=== PATIENT | female | born 1955 | race Caucasian/White ===

== ENCOUNTER 2024-04-26 07:02 | Observation (INO) ==
[2024-04-26] MEDS: NOZIN NASAL SANITIZER TP ONE (07:22)
[2024-04-26] MEDS: DUONEB 0.5 MG/3 MG (3 mL) NEB ONE (07:42)
[2024-04-26] MEDS: ANCEF VIAL 1 GRAM ONE (07:57)
[2024-04-26] MEDS: NS 1,000 ML IV 1,000 ML ONE (07:57)
[2024-04-26] MEDS: NS 100 ML IV 100 ML ONE (07:57)
[2024-04-26] MEDS: VERSED ONE (08:06)
[2024-04-26] MEDS: ZOFRAN INJ 4 MG VIAL ONE (08:06)
[2024-04-26] MEDS: DIPRIVAN VIAL 20 ML ONE (08:06)
[2024-04-26] MEDS: OFIRMEV IV 1000 MG VIAL 0 MG/0 ML VIAL IV ONE (08:06)
[2024-04-26] MEDS: XYLOCAINE 2 % (PLAIN) ONE (08:06)
[2024-04-26] MEDS: FENTANYL VIAL INJ 100 mcg ONE ×2 (08:06→08:59)
[2024-04-26] MEDS: REGLAN INJ 10 MG VIAL ONE (08:06)
[2024-04-26] MEDS: BENADRYL INJ 50 MG VIAL ONE (08:06)
[2024-04-26] MEDS ORDERED: ULTANE GAS IN ONE (08:06)
[2024-04-26] MEDS: PEPCID 20 MG VIAL ONE (08:06)
[2024-04-26] MEDS: ULTANE GAS IN ONE (08:06)
[2024-04-26] MEDS: ROBINUL ONE (08:06)
[2024-04-26] MEDS: DECADRON INJ ONE ×2 (08:06→08:53)
[2024-04-26] MEDS: KETAMINE HCL ONE (08:06)
[2024-04-26] MEDS: OFIRMEV IV 1000 MG VIAL 1,000 MG/100 ML VIAL IV ONE (08:07)
[2024-04-26] MEDS: MARCAINE 0.5% ONE (08:27)
[2024-04-26] MEDS: HEPARIN SODIUM IN D5W 75,000 UNITS/1,500 ML BAG ONE (08:27)
[2024-04-26] MEDS: VISIPAQUE 100 ML ONE (08:27)
[2024-04-26] MEDS: VISIPAQUE 50 ML ONE (08:27)
[2024-04-26] MEDS: HEPARIN SODIUM INJ 5000 UNITS ONE (08:29)
[2024-04-26] MEDS: EPHEDRINE SULFATE INJ ONE (08:31)
[2024-04-26] MEDS: PROTAMINE SULFATE 50 MG VIAL ONE (09:26)
[2024-04-26] MEDS: MARCAINE 0.25% INJ ONE (09:40)
[2024-04-26] MEDS ORDERED: ZOFRAN INJ 4 MG VIAL IVP PRN ×2 (10:27→11:20)
[2024-04-26] MEDS ORDERED: DILAUDID INJ IVP PRN (10:27)
[2024-04-26] MEDS ORDERED: BENADRYL INJ 50 MG VIAL IVP PRN (10:27)
[2024-04-26] MEDS: NS 1,000 ML IV 1,000 ML IV SCH (12:40)
[2024-04-26] MEDS: DILAUDID INJ ONE (13:35)
[2024-04-26 17:10] VITALS: BMI 43.2
[2024-04-26] MEDS: COLACE CAP 100 MG PO SCH (20:35)
[2024-04-26] MEDS: DILAUDID INJ IVP PRN (20:39)
[2024-04-27] MEDS: PERCOCET TAB 5/325 MG PO PRN (04:31)
[2024-04-27 06:22] VITALS: RESP 20
[2024-04-27 07:13] LABS: BLOOD UREA NITROGEN 14 mg/dL (7-18); CALCIUM 8.7 mg/dL (8.5-10.1); CARBON DIOXIDE 29.6 mmol/L (21-32); CHLORIDE 103 mmol/L (98-107); COR NA(FOR HYPERGLY) 142 mmol/L (136-145); CREATININE 0.83 mg/dL (0.55-1.02); GLUCOSE 199 mg/dL (65-99); POTASSIUM 3.9 mmol/L (3.5-5.1); SODIUM 140 mmol/L (136-145); eGFR NON BLACK RACES > 60 (>60)
[2024-04-27] MEDS: LOVENOX INJ 40 MG SYR SC SCH (08:44)
--- NOTE | 2024-04-27 09:27 | NOTE.SOAP ---
Soap Note Note for Day of Date of Exam: 04/27/24 Subjective Data Subjective Data: Resting in bed. POD#1 3d replacement of syndesmosis, left. Throbbing in leg. No nausea, vomting, fevers, chills, shortness, of breath or chest pain. Denies calf pain. Objective Data Objective Data: Left Lower Extremity: Dressing taken down. Surgical site healing well. No signs of dehisence. Swelling looks controlled. No calf or thigh pain. Rewrapped with sterile 4x4s, ABD, Webroll and YAMIL. Assessment Assessment: 69 year old F POD#1 3d replacement of syndesmosis, left Plan Plan: - NWB to LLE - Needs crutches at dispo. - Rx in chart for pain medication, DVT Px, and zofran. - F/U APPT in chart. - Okay for discharge from Podiatry standpoint.
[2024-04-27 12:21] VITALS: BP 107/51; PULSE 69; TEMP 97.5; O2SAT 100
--- NOTE | 2024-04-28 15:00 | DR.OPNOTE ---
OP NOTE Pre-Op Diagnosis: tumor dital tibia Post-Op Diagnosis: same Procedure Date Date Of Procedure: 04/26/24 Procedure: PROCEDURE: DIAGNOSTIC AORTOGRAM, DIAGNOSTIC ARTERIOGRAM LEFT LEG, COIL EMBOLIZATION LEFT PERONEAL ARTERY NARRATIVE : The patient was taken to the operative suite and placed in the supine position. The right groin and entire left leg were prepped and draped in sterile fashion. The patient was given intravenous sedation supervised by myself. Time out for the procedure obtained. Ultrasound used to identify the right femoral artery and the skin overlying it infiltrated with 0.5% Marcaine. Ultrasound then used to guide puncture of the right femoral artery and a 0.012 inch guide wire was placed. Incision made over the guide wire at the skin edge with a # 11 knife blade and a micro sheath placed over the guide wire into the right femoral artery .The small guidewire exchanged for a 0.035 inch Advantage glide wire and the micro sheath exchanged for a 5 Fr vascular sheath. Patient given 5000 units of intravenous heparin. Omni catheter was placed over the guide wire into the aorta and diagnostic aortogram carried out with the power injector showing normal aorta and iliac arteries . Omni catheter was used to steer the guide wire down the left common iliac artery to the distal left external iliac artery . Omni catheter was exchanged for a [place] catheter and sequential arteriograms carried out of the left lower extremity showing normal patent left superficial femoral artery , popliteal artery and three vessel runoff with the tumor supplied by the left peroneal artery. The 5 Fr sheath in the right groin then exchanged for a 7 Fr destination sheath which was parked in distal left superficial fermoral artery . [place] catheter and the guide wire were used to traverse the arteries of the left leg ultimately ending in the left distal peroneal artery . This was selective catheterization. 0.035 inch wire removed and exchanged for a 0.014 inch wire. Over this wire we placed the delivery catheter for the coil , removed the wire and placed the coil deploying it in the left peroneal artery.At the completion of this a follow up arteriogram showed the peroneal artery and blood supply to the tumor to be thrombosed . All wires and devices removed. The 7 Fr sheath was pulled back into the aorta and a 0.035 inch wire placed. The destination sheath exchanged for an Angioseal device used to close the puncture of the right femoral artery. Dressing applied to the left groin. The patient taken to [facility] Day Surgery in good condition. Type of Anesthesia: General Anesthetic w/mask (LMA) Findings: as above Type of Fluids Used:: Lactated Ringers Total Amount of Fluid Infused:: 500cc Hardware: 3 mm coil ledt peroneal artery Complications:: none Needle/Sponge Count:: orrect Disposition/Condition: Pt. tolerated procedure without difficulty. Taken to PACU in stable condition.
--- NOTE | 2024-04-30 11:13 | W.DIS.FURT ---
Summary of Discharge Discharge Summary of Date Date of Exam: 04/27/24 Admission Date Date of Admission: 04/26/24 Admission Diagnosis Hospital Course: Pt is a 69 year old F POD#1 3d replacement of syndesmosis, left. Her discharge plan is: -NWB to LLE - Needs crutches at dispo. - Rx in chart for pain medication, DVT Px, and zofran. - F/U APPT in chart. - Okay for discharge from Podiatry standpoint. -Pt medically stable for discharge. Instructed to follow up with podiatry and pcp. Vital Signs: Vital Signs (72 hours) 04/26/24 07:20 04/26/24 07:20 04/26/24 11:03 Temperature 97 F L 97.4 F L Pulse Rate 65 65 76 Pulse Rate [Brachial] Pulse Rate [Right Brachial] Respiratory Rate 20 18 Blood Pressure 146/66 117/55 Blood Pressure [Left Arm] Blood Pressure [Right Arm] O2 Sat by Pulse Oximetry 97 97 Oxygen Delivery Method Room Air Aerosol Face Tent Oxygen Flow Rate FIO2% 04/26/24 11:08 04/26/24 11:28 04/26/24 11:32 Temperature Pulse Rate 69 67 65 Pulse Rate [Brachial] Pulse Rate [Right Brachial] Respiratory Rate 18 20 20 Blood Pressure 112/57 105/54 103/52 Blood Pressure [Left Arm] Blood Pressure [Right Arm] O2 Sat by Pulse Oximetry 98 93 L 94 L Oxygen Delivery Method Aerosol Face Tent Nasal Cannula Nasal Cannula Oxygen Flow Rate FIO2% 04/26/24 11:43 04/26/24 11:48 04/26/24 11:13 Temperature Pulse Rate 64 67 68 Pulse Rate [Brachial] Pulse Rate [Right Brachial] Respiratory Rate 20 20 18 Blood Pressure 102/55 103/52 105/51 Blood Pressure [Left Arm] Blood Pressure [Right Arm] O2 Sat by Pulse Oximetry 94 L 94 L 98 Oxygen Delivery Method Nasal Cannula Nasal Cannula Aerosol Face Tent Oxygen Flow Rate FIO2% 04/26/24 11:23 04/26/24 11:37 04/26/24 12:00 Temperature 98.3 F Pulse Rate 67 67 Pulse Rate [Brachial] 66 Pulse Rate [Right Brachial] Respiratory Rate 20 20 18 Blood Pressure 111/51 103/54 Blood Pressure [Left Arm] 115/56 Blood Pressure [Right Arm] O2 Sat by Pulse Oximetry 98 94 L 96 Oxygen Delivery Method Aerosol Face Tent Nasal Cannula Oxygen Flow Rate FIO2% 04/26/24 12:15 04/26/24 12:30 04/26/24 12:45 Temperature 98.2 F 98.2 F 98.4 F Pulse Rate Pulse Rate [Brachial] 64 69 73 Pulse Rate [Right Brachial] Respiratory Rate 18 18 20 Blood Pressure Blood Pressure [Left Arm] 116/56 113/56 113/55 Blood Pressure [Right Arm] O2 Sat by Pulse Oximetry 93 L 94 L 96 Oxygen Delivery Method Oxygen Flow Rate FIO2% 04/26/24 13:00 04/26/24 14:00 04/26/24 15:00 Temperature 98.3 F 98.3 F 98.1 F Pulse Rate Pulse Rate [Brachial] 72 74 71 Pulse Rate [Right Brachial] Respiratory Rate 20 20 20 Blood Pressure Blood Pressure [Left Arm] 122/66 116/61 129/59 Blood Pressure [Right Arm] O2 Sat by Pulse Oximetry 95 98 97 Oxygen Delivery Method Oxygen Flow Rate FIO2% 04/26/24 16:00 04/26/24 17:00 04/26/24 12:02 Temperature 98.3 F 98.2 F Pulse Rate Pulse Rate [Brachial] 71 75 Pulse Rate [Right Brachial] Respiratory Rate 18 18 Blood Pressure Blood Pressure [Left Arm] 136/63 139/65 Blood Pressure [Right Arm] O2 Sat by Pulse Oximetry 94 L 97 Oxygen Delivery Method Nasal Cannula Oxygen Flow Rate 2 FIO2% 04/26/24 17:59 04/26/24 19:00 04/26/24 20:00 Temperature 97.8 F Pulse Rate Pulse Rate [Brachial] 80 Pulse Rate [Right Brachial] Respiratory Rate 20 Blood Pressure Blood Pressure [Left Arm] 129/60 Blood Pressure [Right Arm] O2 Sat by Pulse Oximetry 96 Oxygen Delivery Method Nasal Cannula Nasal Cannula Oxygen Flow Rate 2 2 FIO2% 28 04/26/24 20:39 04/26/24 20:51 04/26/24 21:09 Temperature Pulse Rate Pulse Rate [Brachial] Pulse Rate [Right Brachial] Respiratory Rate 20 18 Blood Pressure Blood Pressure [Left Arm] Blood Pressure [Right Arm] O2 Sat by Pulse Oximetry Oxygen Delivery Method Nasal Cannula Oxygen Flow Rate 2 FIO2% 28 04/26/24 23:53 04/27/24 01:59 04/27/24 04:31 Temperature 97.9 F Pulse Rate Pulse Rate [Brachial] 71 Pulse Rate [Right Brachial] Respiratory Rate 19 19 18 Blood Pressure Blood Pressure [Left Arm] 115/56 Blood Pressure [Right Arm] O2 Sat by Pulse Oximetry 99 Oxygen Delivery Method Oxygen Flow Rate FIO2% 04/27/24 05:50 04/27/24 02:29 04/27/24 04:00 Temperature 97.3 F L Pulse Rate Pulse Rate [Brachial] 63 Pulse Rate [Right Brachial] Respiratory Rate 18 18 18 Blood Pressure Blood Pressure [Left Arm] 112/56 Blood Pressure [Right Arm] O2 Sat by Pulse Oximetry 97 Oxygen Delivery Method Oxygen Flow Rate FIO2% 04/27/24 05:31 04/27/24 06:20 04/27/24 08:45 Temperature Pulse Rate Pulse Rate [Brachial] Pulse Rate [Right Brachial] Respiratory Rate 18 20 20 Blood Pressure Blood Pressure [Left Arm] Blood Pressure [Right Arm] O2 Sat by Pulse Oximetry Oxygen Delivery Method Oxygen Flow Rate FIO2% 04/27/24 08:00 04/27/24 07:00 04/27/24 10:15 Temperature 97.8 F Pulse Rate Pulse Rate [Brachial] Pulse Rate [Right Brachial] 65 Respiratory Rate 20 20 Blood Pressure Blood Pressure [Left Arm] Blood Pressure [Right Arm] 131/61 O2 Sat by Pulse Oximetry 98 Oxygen Delivery Method Nasal Cannula Nasal Cannula Oxygen Flow Rate 2 2 FIO2% 04/27/24 09:45 Temperature Pulse Rate Pulse Rate [Brachial] Pulse Rate [Right Brachial] Respiratory Rate 20 Blood Pressure Blood Pressure [Left Arm] Blood Pressure [Right Arm] O2 Sat by Pulse Oximetry Oxygen Delivery Method Oxygen Flow Rate FIO2% Labs: Laboratory Last Values Sodium 140 mmol/L (136-145) 04/27/24 05:35 Corrected Sodium 142 mmol/L (136-145) 04/27/24 05:35 Potassium 3.9 mmol/L (3.5-5.1) 04/27/24 05:35 Chloride 103 mmol/L (98-107) 04/27/24 05:35 Carbon Dioxide 29.6 mmol/L (21-32) 04/27/24 05:35 BUN 14 mg/dL (7-18) 04/27/24 05:35 Creatinine 0.83 mg/dL (0.55-1.02) 04/27/24 05:35 Est GFR (MDRD) Af Amer > 60 (>60) 04/27/24 05:35 Est GFR (MDRD) Non-Af > 60 (>60) 04/27/24 05:35 Glucose 199 mg/dL (65-99) H 04/27/24 05:35 Calcium 8.7 mg/dL (8.5-10.1) 04/27/24 05:35 Reason For Visit: ORIF POST OP PAIN CONTROL Discharge Date Discharge Date: 04/27/24 Discharge Diagnosis Plan of Treatment: Continue with present treatment and follow up plan. Pt is to keep follow up appointment as instructed and take medications as ordered. Discharge Medications Discharge Medications: acetaminophen [From Excedrin Migraine] Allergy (Verified 09/13/23 07:46) aspirin [From Anacin] Allergy (Verified 09/13/23 07:46) caffeine [From Anacin] Allergy (Verified 09/13/23 07:46) clarithromycin [From Biaxin] Allergy (Verified 09/13/23 07:46) codeine Allergy (Verified 09/13/23 07:46) [id number] Reductase Inhibitor Allergy (Verified 09/13/23 07:46) CONTINUE taking the following medications albuterol sulfate 90 mcg/actuation aerosol inhaler 2 puff inhalation Q4H PRN 04/26/24 [History] estradiol 0.5 mg tablet 0.5 mg PO QDAY 04/26/24 [History] fenofibrate nanocrystallized 145 mg tablet 145 mg PO QPM cholesterol 04/26/24 [History] furosemide 40 mg tablet 40 mg PO QAM swelling 04/26/24 [History] insulin degludec 100 unit/mL (3 mL) subcutaneous pen (Tresiba FlexTouch U-100 insulin) 8 unit subcut DAILY 04/26/24 [History] insulin lispro 100 unit/mL subcutaneous pen (Admelog SoloStar U-100 Insulin lispro) 3 unit subcut BID 04/26/24 [History] isosorbide mononitrate 30 mg tablet,extended release 24 hr 30 mg PO QAM 04/26/24 [History] omeprazole 20 mg capsule,delayed release 20 mg PO QDAY 04/26/24 [History] pioglitazone 45 mg tablet 45 mg PO QDAY diabetes mellitus 04/26/24 [History] pramipexole 1 mg tablet 1 mg PO QPM 04/26/24 [History] propranolol 60 mg capsule,24 hr,extended release 60 mg PO QPM 04/26/24 [History] sertraline 100 mg tablet 100 mg PO QDAY 04/26/24 [History] tirzepatide 2.5 mg/0.5 mL subcutaneous pen injector (Mounjaro) 2.5 mg subcut WEEKLY 04/26/24 [History] Discharge Plan Discharge Plan Hospital Course: Pt is a 69 year old F POD#1 3d replacement of syndesmosis, left. Her discharge plan is: -NWB to LLE - Needs crutches at dispo. - Rx in chart for pain medication, DVT Px, and zofran. - F/U APPT in chart. - Okay for discharge from Podiatry standpoint. -Pt medically stable for discharge. Instructed to follow up with podiatry and pcp. Patient Disposition: 01 HOME, SELF-CARE Condition: Stable Health Concerns: Post Hospitalization: new medications and changes needed to prevent readmission or further decline. Pt educated and given instructions on all concerns. Plan of Treatment: Continue with present treatment and follow up plan. Pt is to keep follow up appointment as instructed and take medications as ordered. Prescriptions: Continued pramipexole 1 mg tablet 1 mg PO QPM furosemide 40 mg tablet 40 mg PO QAM isosorbide mononitrate 30 mg tablet extended release 24 hr 30 mg PO QAM propranolol 60 mg capsule,extended release 24 hr 60 mg PO QPM sertraline 100 mg tablet 100 mg PO QDAY pioglitazone 45 mg tablet 45 mg PO QDAY omeprazole 20 mg capsule,delayed release(DR/EC) 20 mg PO QDAY estradiol 0.5 mg tablet 0.5 mg PO QDAY albuterol sulfate 90 mcg/actuation HFA aerosol inhaler 2 puff INHALATION Q4H PRN insulin lispro [Admelog SoloStar U-100 Insulin] 100 unit/mL insulin pen 3 unit SUBCUT BID fenofibrate nanocrystallized 145 mg tablet 145 mg PO QPM insulin degludec [Tresiba FlexTouch U-100] 100 unit/mL (3 mL) insulin pen 8 unit SUBCUT DAILY Patient Comments: INJECT 10 UNITS SUBCUTANEOUSLY ONCE DAILY 150 DAY SUPPLY Mounjaro 2.5 mg/0.5 mL pen injector 2.5 mg SUBCUT WEEKLY Patient Comments: [NO ORIGINAL SIG] Orders to Discharge Patient Discharge Orders: Discharge (Routine); Ordered 04/27/24 Ordered By: Robinson Cartwright Follow ups/Referrals Follow ups/Referrals: NFD,None [Primary Care Provider] - 1 WEEK Instructions Stand Alone Forms: Excuse From Work or School, Find Help Web Site, Post Hospital Follow Up Care
== END 2024-04-27 13:55 | disposition home or self-care (01) ==
LOC: SURG1 07:02 → MED/SURG 07:02
PROVIDERS: ADMIT Obstetrics & Gynecology Obstetrics; ATTEND Podiatrist
DX: I10 Essential (primary) hypertension; G89.18 Other acute postprocedural pain; E11.65 Type 2 diabetes mellitus with hyperglycemia; D16.22 Benign neoplasm of long bones of left lower limb; M12.572 Traumatic arthropathy, left ankle and foot; E11.42 Type 2 diabetes mellitus with diabetic polyneuropathy; M21.862 Other specified acquired deformities of left lower leg